=== PATIENT | female | born 1985 | race Caucasian/White ===

== ENCOUNTER 2017-10-04 22:09 | Emergency (ER) | payer MEDICAID ==
[~2017-10-04] VITALS: Ht 154.9 cm; Wt 78.0 kg
[2017-10-05] MEDS ORDERED: SUMATRIPTAN SUCCINATE 25MG TABLET PO ONE (01:45)
[2017-10-05 02:39] VITALS: BP 128/78
== END 2017-10-05 02:40 | disposition home or self-care (01) ==
LOC: ER 22:10
DX: R51 Headache (principal); R11.0 Nausea; K31.3 Pylorospasm, not elsewhere classified; I10 Essential (primary) hypertension; Z88.0 Allergy status to penicillin
CPT/HCPCS: 99282